=== PATIENT | male | born 2005 | race Two or more races ===

== ENCOUNTER 2025-04-22 12:16 | Emergency (ER) | payer OTHER ==
[~2025-04-22] VITALS: Ht 180.3 cm; Wt 103.9 kg
[2025-04-22] MEDS ORDERED: FAMOTIDINE/PF 20 MG in 0.9 % SODIUM CHLORIDE 8 ML IV PUSH ONE (14:15)
[2025-04-22] MEDS ORDERED: ACETAMINOPHEN 500 MG GEL..CAP PO ONE ×2 (14:15→15:01)
[2025-04-22] MEDS ORDERED: 0.9 % SODIUM CHLORIDE 1,000 ML IV ONE (14:15)
[2025-04-22] MEDS ORDERED: FAMOTIDINE/PF 20 MG/2 ML VIAL ONE (15:01)
[2025-04-22 16:03] LABS: BASO % 0.6 % (0.1-1.2); EOS # 0.04 (0.04-0.54); EOS % 2.4 % (0.7-7.0); LYMPH # 0.75 (1.18-3.74); LYMPH % 44.6 % (19.3-53.1); MEAN PLATELET VOLUME 9.50 fl (9.4-12.4); MONO # 0.19 (0.24-0.82); MONO % 11.3 % (4.7-12.5); NEUT # 0.69 (1.56-6.13); NEUT % 41.1 % (34.0-71.1); RED CELL DISTRIBUTION WIDTH 12.2 % (11.6-14.4)
[2025-04-22 16:30] LABS: ALT/SGPT 255.0 U/L (12-78); AST/SGOT 71.0 U/L (15-37); BILIRUBIN TOTAL 0.35 mg/dL (0.3-1.2); BUN CREA RATIO 17.0 (7.0-25.0); CREATININE SERUM 1.1 mg/dL (0.70-1.30); GFR 84.5; GLOBULINA 4.2 G/DL (2.4-3.5); GLUCOSE FASTING 86.0 mg/dL (65-100); OSMOLALITY SERUM 285.0 MOSM/KG (275-295)
[2025-04-22 17:14] LABS: COVID-19 AG NEGATIVE (NEGATIVE)
[2025-04-22] MEDS ORDERED: PROTONIX20 MG PO (18:02)
[2025-04-22] MEDS ORDERED: 8HR ARTHRITIS650 M1 PO (18:02)
== END 2025-04-22 18:37 | disposition home or self-care (01) ==
LOC: ER 12:16
PROVIDERS: General Practice
DX: B34.9 Viral infection, unspecified (principal); R50.9 Fever, unspecified; Z20.822 Contact with and (suspected) exposure to COVID-19